=== PATIENT | female | born 1990 | race Caucasian/White ===

== ENCOUNTER 2022-02-28 14:28 | Emergency (ER) | payer OTHER ==
[~2022-02-28] VITALS: Ht 170.2 cm; Wt 59.0 kg
--- NOTE | 2022-02-28 14:35 | NUR ---
[facility] & [facility] FOR FENTANYL OVERDOSE. PLACED ON BED, NOT RESPONDING TO VERMAL STIMULI- RESPONDS TO PAINFUL STIMULI, ATTACHED TO MONITOR SATURATING AT 96%RA.
--- NOTE | 2022-02-28 15:58 | NUR ---
BLOOD DRAWN AND SENT TO LAB
[2022-02-28 16:04] LABS: EOSINOPHILS % (AUTO) 0.1 % (0.0-6.0); HEMATOCRIT 38 % (33-45); HEMOGLOBIN 12.7 g/dL (11.5-14.8); LYMPHOCYTES # (AUTO) 1.7 K/uL (0.8-4.8); LYMPHOCYTES % (AUTO) 23.2 % (20.0-44.0); MEAN CORPUSCULAR HGB CONC 34 g/dl (31.0-36.0); MEAN CORPUSCULAR VOLUME 86 fL (82-100); MONOCYTES # (AUTO) 0.8 K/uL (0.1-1.30); MONOCYTES % (AUTO) 11.2 % (2.0-12.0); NEUTROPHILS # (AUTO) 4.9 K/uL (1.8-8.9); NEUTROPHILS % (AUTO) 65.5 % (43.0-81.0); PLATELET COUNT (AUTO) 245 K/uL (150-450); WHITE BLOOD COUNT (AUTO) 7.5 K/uL (4.3-11.0)
[2022-02-28 16:25] LABS: CALCIUM, SERUM 8.7 mg/dL (8.5-10.1); CARBON DIOXIDE 28 mmol/L (21-32); CHLORIDE 108 mmol/L (98-107); CREATININE 0.9 mg/dL (0.6-1.3); GLUCOSE 113 mg/dL (74-106); POTASSIUM 3.7 mmol/L (3.5-5.1); SODIUM SERUM 143 mmol/L (136-145); UREA NITROGEN, BLOOD 17 mg/dL (7-18)
[2022-02-28 16:30] LABS: ALANINE AMINOTRANSFERASE 171 U/L (12-78); ALBUMIN 3.3 g/dL (3.4-5.0); ALCOHOL, BLOOD < 3 mg/dL (0-0); ALKALINE PHOSPHATASE 86 U/L (46-116); ASPARTATE AMINOTRANSFERASE 100 U/L (15-37); BILIRUBIN,DIRECT 0.2 mg/dL (0.0-0.2); BILIRUBIN,TOTAL 0.6 mg/dL (0.2-1.0); TOTAL PROTEIN, SERUM 6.5 g/dL (6.4-8.2)
--- NOTE | 2022-02-28 17:15 | NUR ---
URINE SAMPLE SENT TO LAB
[2022-02-28 18:00] LABS: BILIRUBIN,URINE 1+ (NEGATIVE); COLOR,URINE YELLOW (YELLOW); LEUKOCYTE ESTERASE ,URINE NEGATIVE (NEGATIVE); NITRITE, URINE NEGATIVE (NEGATIVE); PH,URINE 5.5 (5.0-8.0); PROTEIN,URINE 1+ mg/dl (NEGATIVE); UGLUCOSE NEGATIVE (NEGATIVE)
[2022-02-28 18:08] LABS: RBC,URINE 0-2 /HPF (0-2); WBC,URINE 0-2 /HPF (0-3)
[2022-02-28 18:09] LABS: BACTERIA,URINE 1+ /HPF (None Seen); CALCIUM OXALATE CRYSTALS,UR Few /HPF (None Seen); HYALINE CASTS, URINE Few /LPF (None Seen); MUCUS,URINE Moderate /LPF (None Seen)
[2022-02-28] MEDS ORDERED: IV NS 0.9% 500 ML BAG IV ONE (19:00)
[2022-02-28] MEDS ORDERED: NALO4SPR BNOSTRILS (20:21)
--- NOTE | 2022-02-28 20:45 | NUR ---
IV removed. Catheter intact and site benign. Pressure and 4x4 applied to site. No bleeding noted.[id number] ambulatory in a stable condition.
[2022-02-28 20:48] VITALS: BP 125/75
== END 2022-02-28 20:44 ==
LOC: ER 15:13
DX: T40.411A Poisoning by fentanyl or fentanyl analogs, accidental (unintentional), initial encounter (principal); F19.10 Other psychoactive substance abuse, uncomplicated; Y92.89 Other specified places as the place of occurrence of the external cause
CPT/HCPCS: 36415; 80048-TC; 80076-TC; 81001; 84703-TC; 85025-TC; G0480

== ENCOUNTER 2022-08-05 14:34 | Emergency (ER) | payer OTHER ==
[~2022-08-05] VITALS: Ht 157.5 cm; Wt 54.9 kg
[~2022-08-05 14:34] MED LIST: NALO4SPR BNOSTRILS
--- NOTE | 2022-08-05 14:41 | NUR ---
BIB [facility] FOUND SLEEPING ON THE [place] ADMITS TO TAKING DRUGS (XANAX 5MG). VITALS ARE WITHIN NORMAL LIMITS. AWAITING MD GOMES.
--- NOTE | 2022-08-05 17:21 | NUR ---
PT REFUSED LAB DRAW, STATED SHE RATHER LEAVE THAN GIVE BLOOD, PT PROCEEDED TO WALK OUT THE DOOR. DR ZAMORANO AWARE.
[2022-08-05 17:23] VITALS: BP 122/76
== END 2022-08-05 17:23 | disposition home or self-care (01) ==
LOC: ER 14:36
DX: F13.10 Sedative, hypnotic or anxiolytic abuse, uncomplicated (principal)

== ENCOUNTER 2024-08-06 15:53 | Emergency (ER) | payer OTHER ==
[~2024-08-06] VITALS: Ht 154.9 cm; Wt 59.0 kg
[2024-08-06 16:44] LABS: MONOCYTES # (AUTO) 1.3 K/uL (0.1-1.30); MONOCYTES % (AUTO) 13.1 % (2.0-12.0); RED CELL DISTRIBUTION WIDTH 12.9 % (11.5-15.0); WHITE BLOOD COUNT (AUTO) 10.1 K/uL (4.3-11.0)
[2024-08-06 16:46] LABS: BASOPHILS % (AUTO) 0.4 % (0.0-2.0); EOSINOPHILS % (AUTO) 0.4 % (0.0-6.0); HEMATOCRIT 39 % (33-45); HEMOGLOBIN 13.6 g/dL (11.5-14.8); LYMPHOCYTES # (AUTO) 2.9 K/uL (0.8-4.8); MEAN CORPUSCULAR HEMOGLOBIN 30 PG (26.0-33.0); MEAN CORPUSCULAR HGB CONC 35 g/dl (31.0-36.0); MEAN CORPUSCULAR VOLUME 85 fL (82-100); NEUTROPHILS # (AUTO) 5.8 K/uL (1.8-8.9); NEUTROPHILS % (AUTO) 57.1 % (43.0-81.0); RED BLOOD CELL COUNT(AUTO) 4.57 MIL/uL (4.0-5.2)
[2024-08-06 16:49] LABS: CALCIUM, SERUM 9.2 mg/dL (8.5-10.1); CARBON DIOXIDE 24 mmol/L (21-32); CHLORIDE 104 mmol/L (98-107); GLUCOSE 54 mg/dL (74-106); POTASSIUM 2.9 mmol/L (3.5-5.1); SODIUM SERUM 137 mmol/L (136-145); UREA NITROGEN, BLOOD 18 mg/dL (7-18)
[2024-08-06 16:55] LABS: ALANINE AMINOTRANSFERASE 50 U/L (12-78); ALBUMIN 3.8 g/dL (3.4-5.0); ALCOHOL, BLOOD < 3 mg/dL (0-10); ALKALINE PHOSPHATASE 94 U/L (46-116); ASPARTATE AMINOTRANSFERASE 140 U/L (15-37); BILIRUBIN,DIRECT 0.3 mg/dL (0.0-0.2); SALICYLATE < 0.2 mg/dL (2.8-20.0); TOTAL PROTEIN, SERUM 7.7 g/dL (6.4-8.2)
[2024-08-06 16:56] LABS: ACETAMINOPHEN <10 ug/ml (10-30)
[2024-08-06] MEDS ORDERED: FAMOTIDINE/PF INJ 20 MG/2 ML VIAL IV ONE ×2 (17:00→17:06)
[2024-08-06] MEDS ORDERED: POTASSIUM CL. PREMIX PERIPHER. 50 ML IV SCH (17:00)
[2024-08-06] MEDS ORDERED: IV NS 0.9% 1,000 ML BAG IV ONE (17:00)
[2024-08-06] MEDS ORDERED: diphenhydrAMINE HCL 50 MG/ML VIAL ONE (17:05)
[2024-08-06] MEDS ORDERED: POTASSIUM CL. PREMIX PERIPHER. 50 ML ONE (17:05)
[2024-08-06 17:09] LABS: APPEARANCE,URINE CLEAR (CLEAR); BILIRUBIN,URINE SMALL (NEGATIVE); BLOOD, URINE Small Ery/uL (NEGATIVE); COLOR,URINE YELLOW (YELLOW); KETONES,URINE 15 mg/dL (NEGATIVE); LEUKOCYTE ESTERASE ,URINE Negative (NEGATIVE); PROTEIN,URINE 100 mg/dl (NEGATIVE); UGLUCOSE Negative (NEGATIVE)
[2024-08-06 17:10] LABS: ADD URINE CULTURE NO; BACTERIA,URINE Few /HPF (None Seen); NITRITE, URINE NEGATIVE (NEGATIVE); SQUAMOUS EPITHELIAL CELL,UR Few /HPF (None Seen)
[2024-08-06 17:11] LABS: CALCIUM OXALATE CRYSTALS,UR Few /HPF (None Seen); PREGNANCY TEST URINE QUAL NEGATIVE (NEGATIVE)
[2024-08-06] MEDS: diphenhydrAMINE HCL 50 MG/ML VIAL IV ONE (17:22)
[2024-08-06] MEDS ORDERED: POTASSIUM CHLORIDE 20 MEQ TAB.PRT.SR PO ONE (17:23)
[2024-08-06 17:27] LABS: AMPHETAMINE, URINE POSITIVE (NEGATIVE); BARBITURATE, URINE NEGATIVE (NEGATIVE); BENZODIAZEPINE, URINE NEGATIVE (NEGATIVE); COCCAINE, URINE NEGATIVE (NEGATIVE); OPIATE, URINE NEGATIVE (NEGATIVE); PHENCYCLIDINE SCREEN,URINE NEGATIVE (NEGATIVE)
[2024-08-06] MEDS: POTASSIUM CHLORIDE 20 MEQ TAB.PRT.SR PO ONE (17:27)
[2024-08-06 17:28] LABS: CANNABINOID, URINE POSITIVE (NEGATIVE)
[2024-08-06] MEDS ORDERED: SULF1TAB48 PO (17:41)
[2024-08-06 18:00] VITALS: BP 125/70; TEMP 98.5; O2SAT 100
== END 2024-08-06 18:01 | disposition home or self-care (01) ==
LOC: ER 16:00
DX: F19.10 Other psychoactive substance abuse, uncomplicated (principal); L03.114 Cellulitis of left upper limb; L03.113 Cellulitis of right upper limb; Z79.899 Other long term (current) drug therapy
CPT/HCPCS: 99283; 85025; 80048; 80076; 84703; 81001; 36415; 80143; 80320; 80307; J1200; J1308; J3480; A4223; G0480